=== PATIENT | male | born 1955 | race Caucasian/White ===

== ENCOUNTER 2021-05-08 12:30 | Inpatient (IN) | payer MEDICARE ==
[~2021-05-08] VITALS: Ht 182.9 cm; Wt 77.5 kg
--- NOTE | ~2021-05-08 | OP ---
[facility] [address] [place] [address] OPERATIVE REPORT Name: YESSY HENRIQUEZ Room: [address] IN M.R.#: [id number] Admission: 05/08/21 Attend Phys: Carmelina Flores Discharge: Date of : 53 Report #: [id number] THIS REPORT FOR: cc: Cristhian Tyson MD, Bruce D. MD Patterson, Jonathan D. MD ~ DATE OF SURGERY: 05/28/2021 PREOPERATIVE DIAGNOSIS: COVID respiratory failure with right pneumothorax. POSTOPERATIVE DIAGNOSIS: COVID respiratory failure with right pneumothorax. OPERATION: 1. Placement of right internal jugular vein central venous catheter. 2. Right tube thoracostomy placement with water seal. SURGEON: Harris Alvares MD ANESTHESIA: Local. ESTIMATED BLOOD LOSS: Minimal. SPECIMENS: None. DESCRIPTION OF PROCEDURE: After informed consent was obtained from the patient's family, the patient was placed supine on the ICU bed. The right neck and chest were prepped and draped in the usual sterile fashion. Right internal jugular vein was cannulated. Wire was placed. Dilator was placed. Catheter was placed to 16 cm. The right chest was then prepped and draped. The right fourth interspace was anesthetized with 1% lidocaine plain in the mid axillary line. A 2 cm incision was made. Dissection was carried down to the pleura. Pleura was incised. Vidal of air was noted. A 24-Peruvian chest tube was placed superiorly. It was secured to the skin with a 2-0 silk suture. It was connected to the Pleur-Evac. Sterile dressings were applied. COMPLICATIONS: None. DISPOSITION: The patient will stay in the ICU. By: 1047 1100Jojaquelin Alvares MD /nt
[2021-05-08 12:55] VITALS: BP 130/50
[2021-05-08] MEDS ORDERED: PRAVACHOL40 MG PO (12:58)
[2021-05-08] MEDS ORDERED: LEVO-T50 MCG PO (12:58)
[2021-05-08] MEDS ORDERED: RAMIPRIL5 MG PO (12:58)
[2021-05-08] MEDS ORDERED: VENTOLIN HFA 1818 GM INH (12:59)
[2021-05-08] MEDS ORDERED: BREO ELLIPTA 21 EACH INH (12:59)
[2021-05-08 15:19] LABS: HEMATOCRIT 42.8 % (42.0-52.0); MCH 31.3 pg (26.0-34.0); MCV 89.5 fL (80.0-100.0); MPV 7.4 fl. (7.2-11.1); NUCLEATED RBCS 0 /100WBC; PLATELET COUNT* 197 thou/uL (150-400); RBC 4.78 mil/uL (4.50-6.00); RDW-CV 13.6 % (10.5-14.5); WBC 7.6 thou/uL (4.0-11.0)
[2021-05-08 15:28] LABS: CALCIUM 8.2 mg/dL (8.5-10.1); CREATININE 1.4 mg/dL (0.6-1.3); POTASSIUM 3.2 mmol/L (3.5-5.1)
[2021-05-08 15:38] LABS: ALBUMIN 3.2 g/dL (3.4-5.0); MAGNESIUM 2.1 mg/dL (1.8-2.4); TOTAL BILIRUBIN 0.6 mg/dL (<0.1-1.0); TOTAL PROTEIN 7.3 g/dL (6.4-8.2)
--- NOTE | 2021-05-08 15:53 | EKG ---
[place] [address] ELECTROCARDIOGRAM REPORT Name: YESSY HENRIQUEZ Room: [place] [address] ADM IN M.R.#: [id number] Admission: 05/08/21 Attend Phys: Sulaiman Nelson Discharge: Date of : 53 Date of Service: 05/08/21 1309 Report #: [id number] THIS REPORT FOR: //name// [facility] ED Test Date: 2021-05-08 Test Time: 13:09:13 Pat Name: YESSY HENRIQUEZ Department: Room: [facility] Gender: M [employer] Enforcement Agent: LAURA : 1955 Requested By: Chaitanya Cardozo Order Number: [id number] MD: Sascha Brady Measurements Intervals [place] Rate: 113 P: 77 AK: 117 QRS: 81 QRSD: 97 T: -14 QT: 325 QTc: 446 Interpretive Statements Sinus tachycardia Borderline repolarization abnormality No previous ECG available for comparison Electronically Signed On 05-08-2021 15:53:02 [employer] by Sascha Brady [email or web address] <ELECTRONICALLY SIGNED> By: Sascha Brady MD, [facility] 05/08/21 1553 1309 1309 Sascha Brady MD, [facility] /EPI
[2021-05-08 16:15] LABS: ABSOLUTE LYMPHOCYTES 0.8 thou/uL (0.8-5.3); ABSOLUTE MONOCYTES 0.2 thou/uL (0.0-1.2); ABSOLUTE NEUTROPHILS 6.6 thou/uL (1.6-8.1)
[2021-05-08 16:16] LABS: PLATELET ESTIMATE ADEQUATE
[2021-05-08 19:00] VITALS: BP 128/69
[2021-05-08 23:00] VITALS: BP 149/104
--- NOTE | 2021-05-09 01:06 | NUR ---
PT REFUSING INPATIENT BED AT THIS TIME
[2021-05-09 02:48] VITALS: BP 174/104
[2021-05-09 06:02] VITALS: BP 157/83
[2021-05-09 09:39] LABS: CALCIUM 8.6 mg/dL (8.5-10.1); POTASSIUM 3.4 mmol/L (3.5-5.1)
[2021-05-09] MEDS ORDERED: PREDNISONE 20 M20 MG PO (09:48)
[2021-05-09] MEDS ORDERED: NICOTINE LOZENGE2 MG PO (09:49)
[2021-05-09 10:13] VITALS: BP 180/98
--- NOTE | 2021-05-09 10:19 | NUR ---
PT SINUSES RINSED WITH NORMAL SALINE BY DR. GUERRA AT BEDSIDE. PT'S O2 SATURATIONS DROPPED TO 80% WITHOUT OXYGEN. PT BLEW HIS NOSE AND REPORTED RELIEF OF DRYNESS WELL STATES HE FEELS BETTER. PT'S OXYGEN WAS REAPPLIED AND HIS CURRENT O2 SAT IS 91.
--- NOTE | 2021-05-09 10:25 | NUR ---
Pt is admitted on 05/08/21 with Covid. Called Maegan at: [phone] to complete assessment. Pt lives with in a house with 5 steps to enter and 5 steps in the home. Pt was previously independent in ADL's and Mobility. Pt has a walker from previous knee replacment sx but does not use this presently. He has a hx of home health but was unable to recall agency. Pt saw his PCP approximately 1 month ago. reports pt fills prescriptions at the [facility] on . Pt has no hx of SNF or ARU. reports they do not have DPOA paperwork. Discussed at length we could complete DPOA paperwork here and she is to think about it and discuss further with her spouse. CM to continue to follow for discharge planning.
[2021-05-09 14:38] VITALS: BP 171/98
[2021-05-09 20:19] VITALS: BP 153/81
[2021-05-09 20:35] VITALS: BP 164/94
[2021-05-10 00:09] VITALS: BP 183/88
[2021-05-10 04:04] VITALS: BP 139/76
--- NOTE | 2021-05-10 04:41 | NUR ---
PT ARRIVED TO THE UNIT AT 2029. A&O X 4. ON 8L-15 HFC. CHRONIC COUGH. NO C/O PAIN. USES URINAL TO VOID. SLEPT OFF AND ON. CALL LIGHT WITHIN REACH. WILL CONTINUE TO MONITOR.
[2021-05-10 08:00] VITALS: BP 155/92
--- NOTE | 2021-05-10 14:02 | NUR ---
CM FOLLOWUP PT NOT MED CLEAR AND ON 15L O2. CM TO FOLLOW FOR FUTURE DC NEEDS. CURRENT DC PLAN TO DC HOME WITH SPOUSE.
[2021-05-10 16:00] VITALS: BP 168/95
[2021-05-10 20:00] VITALS: BP 161/81
[2021-05-11 00:02] VITALS: BP 144/94
[2021-05-11 04:00] VITALS: BP 127/91
--- NOTE | 2021-05-11 04:18 | NUR ---
ASSUMED CARE OF PT AFTER REPORT AT 1930. PT A&OX4. VSS. PHYSICAL ASSESSMENT COMPLETED AND CHARTED. PT ON HFNC 15L. PT TRACING SR/SB ON TELE. PT DENIES ANY PAIN. PT ABLE TO SLEEP WELL ON BED. CALL LIGHT WITHIN REACH.
[2021-05-11 08:00] VITALS: BP 165/88
[2021-05-11 12:03] VITALS: BP 134/91
[2021-05-11 16:17] VITALS: BP 149/95
[2021-05-11 17:20] LABS: ABSOLUTE LYMPHOCYTES 0.5 thou/uL (0.8-5.3); ABSOLUTE MONOCYTES 1.5 thou/uL (0.0-1.2); ABSOLUTE NEUTROPHILS 14.9 thou/uL (1.6-8.1); BASOPHILS 0.1 %; EOSINOPHILS 0.1 %; HEMATOCRIT 44.8 % (42.0-52.0); HEMOGLOBIN 15.2 gm/dL (14.0-18.0); LYMPHOCYTES 3.1 %; MCH 30.4 pg (26.0-34.0); MCHC 33.9 g/dL (28.0-37.0); MCV 89.7 fL (80.0-100.0); MONOCYTES 8.8 %; MPV 7.7 fl. (7.2-11.1); NUCLEATED RBCS 0 /100WBC; PLATELET COUNT* 285 thou/uL (150-400); POLYS 87.9 %; RBC 4.99 mil/uL (4.50-6.00); RDW-CV 13.6 % (10.5-14.5)
[2021-05-11 17:30] LABS: APTT 24.1 Seconds (25.0-31.3); PROTIME 10.5 Seconds (9.20-11.50)
[2021-05-11 17:32] LABS: CALCIUM 8.7 mg/dL (8.5-10.1); CREATININE 0.9 mg/dL (0.6-1.3); TOTAL BILIRUBIN 0.5 mg/dL (<0.1-1.0); TOTAL PROTEIN 7.1 g/dL (6.4-8.2)
[2021-05-11 20:20] VITALS: BP 148/78
[2021-05-12 08:00] VITALS: BP 143/83
[2021-05-12 11:49] LABS: HEMOGLOBIN 14.8 gm/dL (14.0-18.0); MCH 31.2 pg (26.0-34.0); MCHC 34.4 g/dL (28.0-37.0); MCV 90.8 fL (80.0-100.0); MPV 7.6 fl. (7.2-11.1); RBC 4.74 mil/uL (4.50-6.00); RDW-CV 13.7 % (10.5-14.5)
[2021-05-12 12:30] LABS: CALCIUM 8.3 mg/dL (8.5-10.1); CREATININE 0.7 mg/dL (0.6-1.3); POTASSIUM 3.9 mmol/L (3.5-5.1)
[2021-05-12 14:30] VITALS: BP 148/85
[2021-05-12 17:33] VITALS: BP 157/88
[2021-05-12 20:00] VITALS: BP 140/89
[2021-05-13] VITALS: BP 164/80
[2021-05-13 04:00] VITALS: BP 131/72; BP 142/81
[2021-05-13 08:00] VITALS: BP 141/87
[2021-05-13 11:15] LABS: HEMOGLOBIN 14.9 gm/dL (14.0-18.0); MCH 30.3 pg (26.0-34.0); MCHC 33.2 g/dL (28.0-37.0); MCV 91.4 fL (80.0-100.0); MPV 7.7 fl. (7.2-11.1); NUCLEATED RBCS 0 /100WBC; PLATELET COUNT* 292 thou/uL (150-400); RBC 4.92 mil/uL (4.50-6.00); RDW-CV 14.1 % (10.5-14.5); WBC 12.3 thou/uL (4.0-11.0)
[2021-05-13 11:42] LABS: ALBUMIN 2.7 g/dL (3.4-5.0); CALCIUM 8.5 mg/dL (8.5-10.1); CREATININE 0.7 mg/dL (0.6-1.3); MAGNESIUM 2.5 mg/dL (1.8-2.4); POTASSIUM 3.9 mmol/L (3.5-5.1); TOTAL BILIRUBIN 0.6 mg/dL (<0.1-1.0); TOTAL PROTEIN 6.4 g/dL (6.4-8.2)
[2021-05-13 13:20] LABS: ABSOLUTE LYMPHOCYTES 0.6 thou/uL (0.8-5.3); ABSOLUTE MONOCYTES 0.4 thou/uL (0.0-1.2); ABSOLUTE NEUTROPHILS 11.3 thou/uL (1.6-8.1); PLATELET ESTIMATE ADEQUATE
[2021-05-13 13:24] VITALS: BP 116/73
--- NOTE | 2021-05-13 14:57 | NUR ---
THE PATIENT IS ALERT. SR/ST ON THE MONITOR. CALL LIGHT WITHIN REACH. VOIDS IN THE URINAL. THE PATIENY OFTEN TAKES HIS OXYGEN OFF TO BLOW HIS NOSE THE PATIENT WAS EDUCATED YET HE COMES TO REMOVE HIS OXYGEN.
[2021-05-13 16:32] VITALS: BP 121/80
[2021-05-13 22:40] VITALS: BP 154/87
[2021-05-14] VITALS: BP 135/74
[2021-05-14 04:00] VITALS: BP 137/75
[2021-05-14 04:28] LABS: ABSOLUTE LYMPHOCYTES 0.3 thou/uL (0.8-5.3); ABSOLUTE MONOCYTES 0.7 thou/uL (0.0-1.2); ABSOLUTE NEUTROPHILS 15.1 thou/uL (1.6-8.1); BASOPHILS 0.1 %; HEMATOCRIT 46.3 % (42.0-52.0); HEMOGLOBIN 15.1 gm/dL (14.0-18.0); LYMPHOCYTES 1.9 %; MCH 30.1 pg (26.0-34.0); MCHC 32.6 g/dL (28.0-37.0); MCV 92.3 fL (80.0-100.0); MONOCYTES 4.5 %; MPV 7.7 fl. (7.2-11.1); NUCLEATED RBCS 0 /100WBC; PLATELET COUNT* 324 thou/uL (150-400); POLYS 93.5 %; RBC 5.01 mil/uL (4.50-6.00); RDW-CV 14.1 % (10.5-14.5); WBC 16.2 thou/uL (4.0-11.0)
[2021-05-14 04:52] LABS: ALBUMIN 2.8 g/dL (3.4-5.0); CALCIUM 8.9 mg/dL (8.5-10.1); CREATININE 0.9 mg/dL (0.6-1.3); PHOSPHORUS* 4.1 mg/dL (2.5-4.9); POTASSIUM 3.8 mmol/L (3.5-5.1); TOTAL BILIRUBIN 0.6 mg/dL (<0.1-1.0); TOTAL PROTEIN 6.5 g/dL (6.4-8.2)
--- NOTE | 2021-05-14 07:56 | NUR ---
PATIENT HAS SLEPT OFF AND ON DURING THE NIGHT. VSS ON HEATED HIGH FLOW AT 40L WITH 100% FIO2 AND NON REBREATHER AT 15L. PATIENTS OXYGENATION SATURATION DROPS IN THE 80'S UPON EXERTION. MEDICATIONS GIVEN ORDERED AND CHARTED. 24HR URINE STARTED AND DAY NURSE INFORMED OF THIS DURING REPORT THIS AM. IV IN RIGHT AC-SL. IV IN RIGHT FOREARM-SL. REMDESIVIR ORDERED BY AND [facility] NOTIFIED THAT WE NEEDING MEDICATION FOR PATIENT. IT WAS GIVEN ONCE IT WAS BROUGHT UP FROM [facility] D/T IT NOT BEING AVAILABLE AT THE TIME IT WAS ORDERED. PATIENT INSTRUCTED TO USE CALL LIGHT WHEN NEEDING ASSISTANCE. HOURLY ROUNDS MADE. WILL CONTINUE WITH PLAN OF CARE AND NURSING TO MONITOR.
[2021-05-14 13:37] VITALS: BP 166/97
--- NOTE | 2021-05-14 15:08 | CON ---
[address] [address] CONSULTATION Name: YESSY HENRIQUEZ Carmelina Room: [address] IN M.R.#: [id number] Admission: 05/08/21 Attend Phys: Carmelina Flores Discharge: Date of : 53 Report #: [id number] THIS REPORT FOR: cc: Cristhian Tyson MD, Bruce D. MD Pervez, Adeel MD ~ DATE OF CONSULTATION: 05/12/2021 REQUESTING PHYSICIAN: Dr. Cartagena. INDICATION FOR CONSULTATION: Acute hypoxemic respiratory failure secondary to COVID-19. HISTORY OF PRESENT ILLNESS: This is a 65-year-old gentleman, past medical history includes a history of COPD. He has smoked in the past. He is not on supplemental oxygen at home. He is not vaccinated for COVID-19. The patient is now admitted on 05/08. He has been requiring supplemental oxygen. However, initially he was requiring only 4 liters of oxygen to maintain O2 saturation in the low 90s. There is a progressive increase in oxygen needs. Yesterday, he was maintaining O2 saturation at 4:00 a.m. with 15 liters of oxygen in place, oxygen needs then increased further and he to be placed on a heated high-flow nasal cannula. Currently he is requiring 100% FiO2 with 40 liters flow to maintain O2 saturation in the low 90s. He still appears to be only mildly short of breath at rest. He does have significant swelling of lower extremities. Interestingly, there was a chest x-ray, which was performed yesterday evening, which in fact shows only small infiltrates and mild increase in pulmonary vascular congestion. Hypoxemia appears to be out of proportion. Venous Dopplers are negative. His D-dimer is mildly elevated at 1.74. He does not have much of sputum production. He has a significant blocked nose. REVIEW OF SYSTEMS: For 12 points is negative except as mentioned above. PAST MEDICAL HISTORY: COPD, not on oxygen at home, although not documented on the records. His past medical history is consistent with history of hypertension as well as hypothyroidism, hyperlipidemia, left knee surgery. SOCIAL HISTORY: Previous history of smoking, extensive and now discontinued. VACCINATION HISTORY: Not vaccinated for COVID-19. CURRENT MEDICATIONS: List in [employer] reviewed. HOME MEDICATIONS: List in [employer] reviewed. ALLERGIES: [place] [address] CONSULTATION Name: YESSY HENRIQUEZ Room: [address]#: [id number] Admission: 05/08/21 Attend Phys: Carmelina Flores Discharge: Date of : 53 Report #: [id number] FAMILY HISTORY: No pertinent family history. PHYSICAL EXAMINATION: GENERAL: Alert, awake and oriented. VITAL SIGNS: In the records reviewed. NECK: Does not show raised JVP. CHEST: Breath sounds are bilaterally equal, decreased expirations prolonged. No wheezes heard though. HEART: Regular. No murmur. ABDOMEN: Soft and nontender. EXTREMITIES: Lower extremities, 2+ edema. No calf tenderness. LABORATORY DATA: Chest x-rays are as discussed above. Venous Dopplers also as discussed above. X-ray films as well as report reviewed. Lab work in [facility] reviewed. ASSESSMENT/PLAN: 1. Acute hypoxemic respiratory failure secondary to COVID-19. He is significantly more hypoxemic compared with his x-ray findings from yesterday; therefore, I recommend that we go ahead and proceed with a CTA chest to assess further. I recommend that we also do an echocardiogram. The patient does appear to be significantly fluid overloaded on my exam and I do intend to diurese him. However, since he will be receiving IV dye soon, I did not order diuresis now. We will plan to order later. 2. COVID-19. He is significantly hypoxemic. Also, has a history of chronic obstructive pulmonary disease. Therefore, I decided to increase his dexamethasone dose to 10 b.i.d. He received his fifth dose of remdesivir today. I will assess tomorrow and then consider a longer course of remdesivir. Actemra is in short supply. Based on the availability, it would be reasonable to administer if available. 3. Pulmonary infiltrates. Only small pulmonary infiltrates on chest x-ray. He is on doxycycline. I did not broaden antibiotic coverage for now, but we will reassess after CT is performed. Sputum culture and nasal swab for MRSA are ordered. 4. Chronic obstructive pulmonary disease exacerbation. He is on budesonide nebs. Also, I increased dexamethasone as above. We will start nebulized bronchodilators. 5. Fluid overload. See discussion above. 6. Clostridium difficile prophylaxis, Lactinex. 7. Deep venous thrombosis prophylaxis. Currently on Lovenox 60 daily. We will reassess his CT chest tomorrow. 8. Rhinitis. I changed his Afrin to schedule. 9. Clostridium difficile prophylaxis, Lactinex. [address] [address] CONSULTATION Name: YESSY HENRIQUEZ Room: [address] IN [facility].#: [id number] Admission: 05/08/21 Attend Phys: Carmelina Flores Discharge: Date of : 53 Report #: [id number] 10. Gastrointestinal prophylaxis. We will order Pepcid. Thanks for this consultation. <ELECTRONICALLY SIGNED> By: Volodymyr Barillas MD 05/14/21 1508 1813 2050Volodymyr Barillas MD /nt
[2021-05-14 16:16] VITALS: BP 133/88
--- NOTE | 2021-05-14 18:22 | NUR ---
CM FOLLOWUP PT NOT MED CLEAR AND ON 40L O2. CM TO FOLLOW FOR DC PLANNING.
[2021-05-14 22:30] VITALS: BP 119/75
[2021-05-15 00:20] VITALS: BP 132/47
[2021-05-15 03:52] LABS: BE 1.7 mmol/L (-2 to +3); PCO2 35.2 mmHg (35.0-45.0); pH 7.468 (7.340-7.450)
[2021-05-15 04:00] VITALS: BP 128/66
[2021-05-15 04:29] LABS: ABSOLUTE LYMPHOCYTES 0.3 thou/uL (0.8-5.3); ABSOLUTE MONOCYTES 0.7 thou/uL (0.0-1.2); ABSOLUTE NEUTROPHILS 15.5 thou/uL (1.6-8.1); HEMOGLOBIN 14.5 gm/dL (14.0-18.0); LYMPHOCYTES 1.8 %; MCHC 32.8 g/dL (28.0-37.0); MCV 91.2 fL (80.0-100.0); MONOCYTES 4.1 %; MPV 7.7 fl. (7.2-11.1); NUCLEATED RBCS 0 /100WBC; PLATELET COUNT* 355 thou/uL (150-400); POLYS 94.1 %; RBC 4.83 mil/uL (4.50-6.00); RDW-CV 13.9 % (10.5-14.5); WBC 16.5 thou/uL (4.0-11.0)
[2021-05-15 04:56] LABS: ALBUMIN 2.6 g/dL (3.4-5.0); CALCIUM 8.5 mg/dL (8.5-10.1); CREATININE 0.9 mg/dL (0.6-1.3); MAGNESIUM 2.5 mg/dL (1.8-2.4); POTASSIUM 4.5 mmol/L (3.5-5.1); TOTAL BILIRUBIN 0.6 mg/dL (<0.1-1.0); TOTAL PROTEIN 6.3 g/dL (6.4-8.2)
[2021-05-15 05:06] LABS: PO2 59.1 mmHg (75.0-100.0)
[2021-05-15 08:00] VITALS: BP 130/80
--- NOTE | 2021-05-15 08:39 | NUR ---
PATIENT HAS SLEPT OFF AND ON DURING THE NIGHT. VSS ON HEATED HIGH FLOW @ 40L WITH FIO2 100% AND NON-REBREATHER @ 15L. PATIENTS OXYGEN SATURATION DECREASES ON EXERTION. NOTIFIED OF CRITICAL PO2 THIS AM. NEW ORDER TO START BIPAP. PAIENT EDUCATED ON BIPAP BY NURSE AND RESPIRATORY THERAPIST. PATIENT AGREES TO USE BIPAP. NEW ORDER ALSO GIVEN FOR IV ANXIETY MEDICATION TO HELP WITH TOLERATING BIPAP USE. IV IN RIGHT WRIST-SL. MEDICATIONS GIVEN ORDERED AND CHARTED. PATIENT INSTRUCTED TO USE CALL LIGHT WHEN NEEDING ASSISTANCE. HOURLY ROUNDS MADE. WILL CONTINUE WITH PLAN OF CARE AND NURSING TO MONITOR.
[2021-05-15 12:00] VITALS: BP 131/74
--- NOTE | 2021-05-15 15:23 | NUR ---
The patient is alert. SR/ST on the monitor. Call light within reach. The patient was placed on the BIPAP. Voids via urinal. Oxygen stat drops some with activity.
[2021-05-15 16:00] VITALS: BP 128/77
--- NOTE | 2021-05-15 16:03 | NUR ---
CM FOLLOWUP PT NOT MED CLEAR AND ON 40L O2. PT INDICATED THAT HE WOULD LIKE AND SPOUSE LISTED DPOA. DPOA FORM COMPLETED AND PROVIDED TO RN TO HAVE PT SIGN. CM TO FOLLOW FOR FUTURE DC PLANNING.
--- NOTE | 2021-05-15 18:38 | NUR ---
The patient was offfered a cather and declined at this time.
[2021-05-15 21:50] VITALS: BP 106/68
[2021-05-16 04:43] LABS: HEMATOCRIT 45.6 % (42.0-52.0); HEMOGLOBIN 15.3 gm/dL (14.0-18.0); MCH 30.6 pg (26.0-34.0); MCHC 33.5 g/dL (28.0-37.0); MCV 91.4 fL (80.0-100.0); MPV 7.8 fl. (7.2-11.1); NUCLEATED RBCS 0 /100WBC; PLATELET COUNT* 355 thou/uL (150-400); RBC 4.99 mil/uL (4.50-6.00); RDW-CV 13.9 % (10.5-14.5); WBC 18.6 thou/uL (4.0-11.0)
[2021-05-16 04:59] LABS: BE 1.9 mmol/L (-2 to +3); PCO2 39.5 mmHg (35.0-45.0); PO2 71.6 mmHg (75.0-100.0); pH 7.438 (7.340-7.450)
[2021-05-16 05:11] VITALS: BP 112/60
[2021-05-16 05:21] LABS: ALBUMIN 2.8 g/dL (3.4-5.0); CALCIUM 8.7 mg/dL (8.5-10.1); CREATININE 1.1 mg/dL (0.6-1.3); PHOSPHORUS* 4.6 mg/dL (2.5-4.9); POTASSIUM 4.7 mmol/L (3.5-5.1); TOTAL BILIRUBIN 0.6 mg/dL (<0.1-1.0); TOTAL PROTEIN 6.7 g/dL (6.4-8.2)
[2021-05-16 07:07] LABS: ABSOLUTE LYMPHOCYTES 0.4 thou/uL (0.8-5.3); ABSOLUTE MONOCYTES 1.3 thou/uL (0.0-1.2); ABSOLUTE NEUTROPHILS 16.9 thou/uL (1.6-8.1)
[2021-05-16 07:08] LABS: PLATELET ESTIMATE ADEQUATE
[2021-05-16 08:00] VITALS: BP 102/54
--- NOTE | 2021-05-16 08:14 | NUR ---
PATIENT HAS SLEPT OFF AND ON DURING THE NIGHT. VSS ON BIPAP @ 100% FIO2. PATIENT RESTLESS AT TIMES. MEDICATIONS GIVEN ORDERED AND CHARTED. NEW IV INSERTED IN RIGHT HAND-SL. PATIENT INSTRUCTED TO USE CALL LIGHT WHEN NEEDING ASSISTANCE. HOURLY ROUNDS MADE. WILL CONTINUE WITH PLAN OF CARE AND NURSING TO MONITOR.
[2021-05-16 12:00] VITALS: BP 117/66
--- NOTE | 2021-05-16 13:28 | NUR ---
CM FOLLOWUP PT NOT MED CLEAR AND ON BIPAP. CM TO FOLLOW FOR FUTURE DC PLANNING.
--- NOTE | 2021-05-16 13:59 | NUR ---
the patient is alert. denies cp or sob. call light within reach. call light withiin reach. the patient remians on the bipap unless heated hi flow with meals. voids via urinal.
--- NOTE | 2021-05-16 14:08 | NUR ---
Nutrition: Pt admitted with COVID. On bipap, but on hi-lynsey with meals. Assessed for LOS. Labs: BG 144, alb 2.8, prealb 21.4. Wt: 169#. 2gm Na diet. Vitmains C, D, B1. Appears at low nutrition risk.
[2021-05-16 16:00] VITALS: BP 133/103
[2021-05-16 19:45] VITALS: BP 150/88
[2021-05-16 20:49] LABS: CREATININE 1.1 mg/dL (0.6-1.3); MAGNESIUM 3.1 mg/dL (1.8-2.4); POTASSIUM 4.5 mmol/L (3.5-5.1)
[2021-05-17 00:50] VITALS: BP 117/61
[2021-05-17 04:28] VITALS: BP 136/66
--- NOTE | 2021-05-17 04:37 | NUR ---
PT A&O X 4. O2 SAT 95-99% ON BIPAP. MEDS GIVEN ORDERED. NO C/O PAIN. USES URINAL TO VOID. CALL LIGHT WITHIN REACH. WILL CONTINUE TO MONITOR.
[2021-05-17 05:21] LABS: ABSOLUTE LYMPHOCYTES 0.3 thou/uL (0.8-5.3); ABSOLUTE MONOCYTES 0.7 thou/uL (0.0-1.2); ABSOLUTE NEUTROPHILS 13.8 thou/uL (1.6-8.1); BASOPHILS 0.2 %; HEMOGLOBIN 14.8 gm/dL (14.0-18.0); LYMPHOCYTES 2.2 %; MCHC 32.8 g/dL (28.0-37.0); MCV 91.7 fL (80.0-100.0); MONOCYTES 4.5 %; MPV 7.8 fl. (7.2-11.1); NUCLEATED RBCS 0 /100WBC; PLATELET COUNT* 386 thou/uL (150-400); POLYS 93.1 %; RBC 4.91 mil/uL (4.50-6.00); WBC 14.8 thou/uL (4.0-11.0)
[2021-05-17 05:47] LABS: ALBUMIN 3.4 g/dL (3.4-5.0); CALCIUM 8.9 mg/dL (8.5-10.1); CREATININE 1.1 mg/dL (0.6-1.3); MAGNESIUM 3.2 mg/dL (1.8-2.4); PHOSPHORUS* 4.1 mg/dL (2.5-4.9); POTASSIUM 4.6 mmol/L (3.5-5.1); TOTAL BILIRUBIN 0.7 mg/dL (<0.1-1.0); TOTAL PROTEIN 7.1 g/dL (6.4-8.2)
[2021-05-17 08:00] VITALS: BP 114/77
--- NOTE | 2021-05-17 09:04 | 2DMMODE ---
[place] [address] 2 D/M-MODE ECHOCARDIOGRAM Name: YESSY HENRIQUEZ Room: [address] IN M.R.#: [id number] Admission: 05/08/21 Attend Phys: Sulaiman Nelson Discharge: Date of : 53 Date of Service: 05/15/21 1342 Report #: [id number] THIS REPORT FOR: cc: Cristhian Tyson MD, Bruce D. MD Liston, Michael J. MD [facility] ~ APPROVED REPORT Study performed: 05/15/2021 12:27:36 EXAM: Limited 2D, Doppler, and color-flow Echocardiogram Patient Location: Bedside BSA: 1.98 HR: 98 bpm BP: 137/75 mmHg Other Information Study Quality: Technically Limited Technically limited study due to Covid. Indications Dyspnea Covid 2D Dimensions IVSd: 11.19 (7-11mm) LVDd: 44.05 mm PWd: 11.48 (7-11mm) LVDs: 28.75 (25-40mm) Aortic Root: 25.35 mm Aortic Valve AoV Peak Jose Daniel.: 1.54 m/s AO Peak Gr.: 9.49 mmHg LVOT Max P.82 mmHg AO Mean Gr.: 4.74 mmHg LVOT Mean P.97 mmHg LVOT Max V: 0.98 m/s AO V2 VTI: 24.47 cm LVOT Mean V: 0.64 m/s LVOT V1 VTI: 18.16 cm Pulmonary Valve PV Peak Jose Daniel.: 1.43 m/s PV Peak Gr.: 8.18 mmHg Left Ventricle The left ventricle is grossly normal in size. [place] [address] 2 D/M-MODE ECHOCARDIOGRAM Name: YESSY HENRIQUEZ Room: [address] IN ..#: [id number] Admission: 05/08/21 Attend Phys: Sulaiman Nelson Discharge: Date of : 53 Date of Service: 05/15/21 1342 Report #: [id number] wall motion abnormalities. There is normal left ventricular wall thickness. Left ventricular systolic function is grossly normal. LVEF is 60-65%. Atria Interatrial septum not well visualized. Aortic Valve The aortic valve is normal in structure. No aortic regurgitation is present. There is no aortic valvular stenosis. Mitral Valve The mitral valve is normal in structure. Trace mitral regurgitation. No evidence of mitral valve stenosis. Tricuspid Valve The tricuspid valve is normal in structure. Trace tricuspid regurgitation. Pulmonic Valve Pulmonic valve is not well visualized. There is no pulmonic valvular regurgitation. Great Vessels The aortic root is normal in size. Aortic arch is not visualized. IVC is normal in size and collapses >50% with inspiration. Pericardium There is no pericardial effusion. <Conclusion> Limited echocardiogram. The left ventricle is grossly normal in size. There is normal left ventricular wall thickness. Left ventricular systolic function is grossly normal. LVEF is 60-65%. There are no obvious wall motion abnormalities. Trace tricuspid regurgitation. IVC is normal in size and collapses >50% with inspiration. <ELECTRONICALLY SIGNED> By: Tha White MD, FACC 05/15/21 134 134 41 Tha White MD, FACC /INF
[2021-05-17 12:00] VITALS: BP 108/81
[2021-05-17 16:00] VITALS: BP 136/80
--- NOTE | 2021-05-17 16:38 | NUR ---
CM FOLLOWUP PT NOT MED CLEAR AND ON BIPAP 100%. CM TO FOLLOW FOR FUTURE DC PLANNING.
[2021-05-17 20:00] VITALS: BP 147/84
--- NOTE | 2021-05-17 21:29 | NUR ---
We need to add the patient's daughters to his authorized contact list. His is very confused after updates and he has requested that we also reach out to the girls. I can't add them to the list since it is 'too old.' Ashley Alfaro [phone] Lorin Benjamin [phone]
[2021-05-18 01:24] VITALS: BP 116/65
[2021-05-18 04:29] VITALS: BP 142/61
--- NOTE | 2021-05-18 06:30 | NUR ---
ASSUMED CARE OF PT AFTER REPORT AT 1930. PT A&OX4. VSS. PHYSICAL ASSESSMENT COMPLETED AND CHARTED. PT ON HHFNC 60L/100%/BIPAP 100%. PT TRACING SR/ST ON TELE. PT DENIES ANY PAIN. PT ABLE TO SLEEP WELL ON BED. CALL LIGHT WITHIN REACH.
[2021-05-18 08:20] VITALS: BP 137/69
[2021-05-18 11:59] VITALS: BP 121/79
--- NOTE | 2021-05-18 16:21 | NUR ---
CM FOLLOWUP PT NOT MED CLEAR AND ON HIFLOW 02. WHEN MED CLEAR, PT SEEKING TO DC HOME WITH SPOUSE. CM TO FOLLOW FOR FUTURE DC NEEDS.
[2021-05-18 18:07] VITALS: BP 135/85
[2021-05-18 20:00] VITALS: BP 134/78
[2021-05-19] VITALS: BP 144/86
[2021-05-19 04:00] VITALS: BP 137/85
[2021-05-19 05:41] LABS: ABSOLUTE BASOPHILS 0.1 thou/uL (0.0-0.2); ABSOLUTE LYMPHOCYTES 0.3 thou/uL (0.8-5.3); ABSOLUTE MONOCYTES 0.6 thou/uL (0.0-1.2); ABSOLUTE NEUTROPHILS 16.5 thou/uL (1.6-8.1); BASOPHILS 0.3 %; HEMATOCRIT 43.7 % (42.0-52.0); HEMOGLOBIN 14.6 gm/dL (14.0-18.0); LYMPHOCYTES 1.8 %; MCH 30.6 pg (26.0-34.0); MCHC 33.5 g/dL (28.0-37.0); MCV 91.5 fL (80.0-100.0); MONOCYTES 3.3 %; MPV 8.7 fl. (7.2-11.1); NUCLEATED RBCS 0 /100WBC; POLYS 94.6 %; RBC 4.78 mil/uL (4.50-6.00); RDW-CV 14.2 % (10.5-14.5); WBC 17.4 thou/uL (4.0-11.0)
[2021-05-19 06:00] LABS: PLATELET COUNT* 308 thou/uL (150-400)
[2021-05-19 06:11] LABS: ALBUMIN 2.9 g/dL (3.4-5.0); CALCIUM 8.9 mg/dL (8.5-10.1); CREATININE 0.9 mg/dL (0.6-1.3); MAGNESIUM 2.6 mg/dL (1.8-2.4); POTASSIUM 5.9 mmol/L (3.5-5.1); TOTAL PROTEIN 6.7 g/dL (6.4-8.2)
[2021-05-19 08:00] VITALS: BP 129/87
[2021-05-19 12:00] VITALS: BP 123/70
[2021-05-19 16:00] VITALS: BP 123/85
[2021-05-19 20:00] VITALS: BP 169/82
[2021-05-20] VITALS: BP 130/75
--- NOTE | 2021-05-20 03:33 | NUR ---
ASSUMED CARE OF PT AFTER REPORT AT 1930. PT A&OX4. VSS. PHYSICAL ASSESSMENT COMPLETED AND CHARTED. PT ON HHFNC/NRB/BIPAP AT HS. PT TRACING SR/ST ON TELE. PT UPSTANDBY TO BSC. PT DENIES PAIN. PT ABLE TO SLEEP WELL ON BED. CALL LIGHT WITHIN REACH.
[2021-05-20 04:00] VITALS: BP 100/80
[2021-05-20 06:16] LABS: HEMATOCRIT 45.3 % (42.0-52.0); HEMOGLOBIN 15.1 gm/dL (14.0-18.0); MCH 30.4 pg (26.0-34.0); MCHC 33.3 g/dL (28.0-37.0); MCV 91.5 fL (80.0-100.0); MPV 8.4 fl. (7.2-11.1); RBC 4.95 mil/uL (4.50-6.00); RDW-CV 13.9 % (10.5-14.5); WBC 21.7 thou/uL (4.0-11.0)
[2021-05-20 06:43] LABS: ALBUMIN 2.9 g/dL (3.4-5.0); CALCIUM 9.1 mg/dL (8.5-10.1); MAGNESIUM 2.5 mg/dL (1.8-2.4); POTASSIUM 5.4 mmol/L (3.5-5.1); TOTAL BILIRUBIN 0.8 mg/dL (<0.1-1.0); TOTAL PROTEIN 6.5 g/dL (6.4-8.2)
[2021-05-20 08:00] VITALS: BP 113/83
[2021-05-20 12:00] VITALS: BP 124/83
[2021-05-20 15:43] VITALS: BP 115/64
[2021-05-20 20:00] VITALS: BP 140/97
[2021-05-21] VITALS: BP 112/65
[2021-05-21 04:00] VITALS: BP 116/68
--- NOTE | 2021-05-21 04:07 | NUR ---
ASSUMED CARE OF PT AFTER REPORT AT 1930. PT A&OX4. ANXIOUS AT FIRST PART OF THE SHIFT. VSS. PHYSICAL ASSESSMENT COMPLETED AND CHARTED. PT ON HHFNC/NRB/BIPAP ON TELE. PT UPSTANDBY TO RESTROOM. PT DENIES PAIN. FALL PRECAUTIONS IN PLACE. CALL LIGHT WITHIN REACH.
[2021-05-21 08:00] VITALS: BP 130/74
[2021-05-21 13:07] VITALS: BP 129/88
[2021-05-21 14:42] LABS: HEMATOCRIT 43.4 % (42.0-52.0); HEMOGLOBIN 14.6 gm/dL (14.0-18.0); MCH 29.9 pg (26.0-34.0); MCHC 33.5 g/dL (28.0-37.0); MCV 89.2 fL (80.0-100.0); MPV 8.5 fl. (7.2-11.1); NUCLEATED RBCS 0 /100WBC; PLATELET COUNT* 224 thou/uL (150-400); RBC 4.87 mil/uL (4.50-6.00); RDW-CV 13.6 % (10.5-14.5); WBC 23.1 thou/uL (4.0-11.0)
[2021-05-21 15:04] LABS: ABSOLUTE LYMPHOCYTES 0.5 thou/uL (0.8-5.3); ABSOLUTE MONOCYTES 0.2 thou/uL (0.0-1.2); ABSOLUTE NEUTROPHILS 22.4 thou/uL (1.6-8.1); PLATELET ESTIMATE ADEQUATE
[2021-05-21 16:38] VITALS: BP 133/88
--- NOTE | 2021-05-21 17:13 | NUR ---
CM FOLLOWUP PT NOT MED CLEAR AND ON BIPAP. CM TO FOLLOW FOR FUTURE DC NEEDS.
[2021-05-21 20:00] VITALS: BP 135/86
[2021-05-21 21:41] LABS: ALBUMIN 2.7 g/dL (3.4-5.0); CALCIUM 8.5 mg/dL (8.5-10.1); MAGNESIUM 2.7 mg/dL (1.8-2.4); POTASSIUM 4.8 mmol/L (3.5-5.1); TOTAL BILIRUBIN 0.8 mg/dL (<0.1-1.0); TOTAL PROTEIN 6.3 g/dL (6.4-8.2)
[2021-05-22 00:06] VITALS: BP 141/66
[2021-05-22 04:35] VITALS: BP 125/59
[2021-05-22 08:00] VITALS: BP 130/74
[2021-05-22 12:00] VITALS: BP 118/72
[2021-05-22 16:00] VITALS: BP 138/78
[2021-05-22 16:14] LABS: ABSOLUTE LYMPHOCYTES 0.4 thou/uL (0.8-5.3); ABSOLUTE MONOCYTES 0.9 thou/uL (0.0-1.2); ABSOLUTE NEUTROPHILS 19.4 thou/uL (1.6-8.1); BASOPHILS 0.1 %; EOSINOPHILS 0.1 %; HEMATOCRIT 41.3 % (42.0-52.0); HEMOGLOBIN 13.5 gm/dL (14.0-18.0); LYMPHOCYTES 2.1 %; MCHC 32.8 g/dL (28.0-37.0); MCV 91.6 fL (80.0-100.0); MONOCYTES 4.1 %; MPV 8.5 fl. (7.2-11.1); NUCLEATED RBCS 0 /100WBC; PLATELET COUNT* 217 thou/uL (150-400); POLYS 93.6 %; RBC 4.51 mil/uL (4.50-6.00); RDW-CV 13.3 % (10.5-14.5); WBC 20.7 thou/uL (4.0-11.0)
[2021-05-22 16:54] LABS: ALBUMIN 2.6 g/dL (3.4-5.0); CALCIUM 8.5 mg/dL (8.5-10.1); POTASSIUM 4.6 mmol/L (3.5-5.1); TOTAL BILIRUBIN 0.9 mg/dL (<0.1-1.0); TOTAL PROTEIN 5.6 g/dL (6.4-8.2)
--- NOTE | 2021-05-22 17:13 | NUR ---
CM FOLLOWUP PT NOT MED CLEAR. PT OFF ISOLATION AND MAY BEGIN HAVING VISITORS. CM TO FOLLOW FOR DC PLANNING NEEDS.
[2021-05-22 20:00] VITALS: BP 128/80
--- NOTE | 2021-05-23 00:32 | NUR ---
The patient is alert. able to make needs known. Call light withn reach. sr/st on the monitor. the patient tolerated being off the bipap to take medication.
[2021-05-23 00:34] VITALS: BP 170/97
[2021-05-23 02:12] LABS: ABSOLUTE LYMPHOCYTES 0.4 thou/uL (0.8-5.3); ABSOLUTE MONOCYTES 0.9 thou/uL (0.0-1.2); ABSOLUTE NEUTROPHILS 22.1 thou/uL (1.6-8.1); BASOPHILS 0.2 %; HEMATOCRIT 40.7 % (42.0-52.0); HEMOGLOBIN 13.4 gm/dL (14.0-18.0); LYMPHOCYTES 1.9 %; MCHC 32.9 g/dL (28.0-37.0); MCV 91.2 fL (80.0-100.0); MPV 8.9 fl. (7.2-11.1); NUCLEATED RBCS 0 /100WBC; PLATELET COUNT* 241 thou/uL (150-400); POLYS 93.9 %; RBC 4.46 mil/uL (4.50-6.00); RDW-CV 13.7 % (10.5-14.5); WBC 23.6 thou/uL (4.0-11.0)
[2021-05-23 02:32] LABS: CALCIUM 8.6 mg/dL (8.5-10.1); CREATININE 0.9 mg/dL (0.6-1.3); MAGNESIUM 2.5 mg/dL (1.8-2.4); POTASSIUM 4.7 mmol/L (3.5-5.1)
[2021-05-23 04:10] VITALS: BP 135/79
[2021-05-23 09:15] VITALS: BP 106/74
[2021-05-23 11:30] VITALS: BP 96/62
[2021-05-23 16:24] VITALS: BP 140/92
--- NOTE | 2021-05-23 17:06 | NUR ---
CM FOLLOWUP PT NOT MED CLEAR. PT OUT OF ISOLATION. PT ON 60L. CM TO FOLLOW FOR FUTURE DC NEEDS.
[2021-05-23 20:00] VITALS: BP 160/95
--- NOTE | 2021-05-23 20:30 | NUR ---
ID consult placed via internet.
--- NOTE | 2021-05-23 21:18 | NUR ---
The patient is alert. SR/ST on the monitor. Call light within reach. Denies SOB or CP.
--- NOTE | 2021-05-23 21:40 | NUR ---
Tele med called back the consult for ID has to be placed at 9am eastern time. This nurse will resubmit in the morning.
[2021-05-24] VITALS: BP 125/60
[2021-05-24 02:35] LABS: ABSOLUTE BASOPHILS 0.1 thou/uL (0.0-0.2); ABSOLUTE EOSINOPHILS 0.1 thou/uL (0.0-0.7); ABSOLUTE LYMPHOCYTES 0.4 thou/uL (0.8-5.3); ABSOLUTE MONOCYTES 0.9 thou/uL (0.0-1.2); ABSOLUTE NEUTROPHILS 20.1 thou/uL (1.6-8.1); BASOPHILS 0.4 %; EOSINOPHILS 0.5 %; HEMATOCRIT 35.6 % (42.0-52.0); HEMOGLOBIN 11.8 gm/dL (14.0-18.0); MCH 30.3 pg (26.0-34.0); MCHC 33.2 g/dL (28.0-37.0); MCV 91.2 fL (80.0-100.0); MPV 9.3 fl. (7.2-11.1); NUCLEATED RBCS 0 /100WBC; PLATELET COUNT* 243 thou/uL (150-400); POLYS 93.1 %; RBC 3.91 mil/uL (4.50-6.00); RDW-CV 13.6 % (10.5-14.5); WBC 21.6 thou/uL (4.0-11.0)
[2021-05-24 02:38] LABS: CALCIUM 8.3 mg/dL (8.5-10.1); CREATININE 0.7 mg/dL (0.6-1.3); MAGNESIUM 2.5 mg/dL (1.8-2.4); POTASSIUM 5.9 mmol/L (3.5-5.1)
[2021-05-24 04:00] VITALS: BP 135/70
[2021-05-24 08:00] VITALS: BP 156/88
[2021-05-24 12:03] VITALS: BP 151/81
[2021-05-24 16:20] VITALS: BP 136/86
--- NOTE | 2021-05-24 17:19 | NUR ---
CM FOLLOWUP PT NOT MED CLEAR AND ON BIPAP. CM TO FOLLOW FOR FUTURE DC NEEDS.
[2021-05-24 20:00] VITALS: BP 98/66
--- NOTE | 2021-05-24 22:02 | NUR ---
the patient is alert. able to make needs known. st on the monitor. lopez patent draning solo urine. prn medication given for low blood presure. PICC line intact. IV fluids infusing. tolerating the bipap at this time.
[2021-05-25 00:23] VITALS: BP 170/92
[2021-05-25 04:00] VITALS: BP 140/72
[2021-05-25 05:15] LABS: HEMATOCRIT 38.8 % (42.0-52.0); HEMOGLOBIN 12.6 gm/dL (14.0-18.0); MCH 29.9 pg (26.0-34.0); MCHC 32.5 g/dL (28.0-37.0); MPV 9.5 fl. (7.2-11.1); NUCLEATED RBCS 0 /100WBC; PLATELET COUNT* 230 thou/uL (150-400); RBC 4.22 mil/uL (4.50-6.00); RDW-CV 13.8 % (10.5-14.5); WBC 22.8 thou/uL (4.0-11.0)
[2021-05-25 05:33] LABS: ALBUMIN 2.7 g/dL (3.4-5.0); CALCIUM 8.5 mg/dL (8.5-10.1); CREATININE 1.2 mg/dL (0.6-1.3); MAGNESIUM 2.9 mg/dL (1.8-2.4); TOTAL BILIRUBIN 0.9 mg/dL (<0.1-1.0)
[2021-05-25 05:34] LABS: APTT 24.5 Seconds (25.0-31.3); POTASSIUM 5.5 mmol/L (3.5-5.1); PROTIME 10.7 Seconds (9.20-11.50)
[2021-05-25 06:33] LABS: ABSOLUTE LYMPHOCYTES 0.7 thou/uL (0.8-5.3); ABSOLUTE MONOCYTES 0.9 thou/uL (0.0-1.2); ABSOLUTE NEUTROPHILS 21.2 thou/uL (1.6-8.1); METAMYELOCYTES 3 %; MYELOCYTES 1 %; PLATELET ESTIMATE ADEQUATE
[2021-05-25 08:00] VITALS: BP 123/69
[2021-05-25 08:21] LABS: BE 5.2 mmol/L (-2 to +3); PCO2 37.3 mmHg (35.0-45.0); pH 7.501 (7.340-7.450)
[2021-05-25 08:30] LABS: PO2 57.8 mmHg (75.0-100.0)
[2021-05-25 12:39] VITALS: BP 143/78
--- NOTE | 2021-05-25 15:22 | NUR ---
CM FOLLOWUP PT NOT MED CLEAR AND ON BIPAP AND HEATED HIFLOW. CM TO FOLLOW FOR FUTURE DC NEEDS. PRIOR DC PLAN WAS TO DC HOME WITH SPOUSE WHEN MED CLEAR.
[2021-05-25 16:32] VITALS: BP 120/61
[2021-05-25 20:00] VITALS: BP 135/79
[2021-05-26] VITALS (17 sets, daily range): BP systolic 87–147; BP diastolic 55–89
--- NOTE | 2021-05-26 05:14 | NUR ---
ASSUMED CARE OF PT AFTER REPORT AT 1930. PT A&OX4. ANXIOUS. VSS. PHYSICAL ASSESSMWNT COMPLETED AND CHARTED. PT ON CONTINUOUS BIPAP 100%. PT WITH NGUYEN TO DEPENDENT DRAIN. PICC LINE STILL BLEEDING-REINFORCED DRESSING-DR ACUÑA MADE AWARE WITH ORDER TO HOLD LAST NIGHT LOVENOX. STARTED ON PRECEDEX DRIP ORDERED-TITRATED PER PROTOCOL. UPDATED RAYMA () REGARDING PT STATUS. FALL PRECAUTIONS IN PLACE. CALL LIGHT WITHIN REACH.
--- NOTE | 2021-05-26 09:00 | NUR ---
SPOKE WITH PATIENT ABOUT POSSIBLY NEEDING INTUBATION. PATIENT WANTS TO BE A FULL CODE. UPDATED DGTR ON PATIENT POTENTIALLY NEEDING INTUBATION. FAMILY CONCURS PATIENTS WANTS TO BE A FULL CODE
[2021-05-26 12:09] LABS: ABSOLUTE BASOPHILS 0.1 thou/uL (0.0-0.2); ABSOLUTE LYMPHOCYTES 0.6 thou/uL (0.8-5.3); ABSOLUTE MONOCYTES 0.5 thou/uL (0.0-1.2); ABSOLUTE NEUTROPHILS 13.5 thou/uL (1.6-8.1); BASOPHILS 0.4 %; HEMATOCRIT 33.2 % (42.0-52.0); LYMPHOCYTES 3.8 %; MCH 30.7 pg (26.0-34.0); MCHC 33.1 g/dL (28.0-37.0); MCV 92.7 fL (80.0-100.0); MONOCYTES 3.7 %; MPV 9.8 fl. (7.2-11.1); NUCLEATED RBCS 0 /100WBC; PLATELET COUNT* 164 thou/uL (150-400); POLYS 92.1 %; RBC 3.58 mil/uL (4.50-6.00); RDW-CV 13.5 % (10.5-14.5); WBC 14.7 thou/uL (4.0-11.0)
[2021-05-26 12:19] LABS: ALBUMIN 2.4 g/dL (3.4-5.0); CALCIUM 8.5 mg/dL (8.5-10.1); POTASSIUM 4.6 mmol/L (3.5-5.1); TOTAL BILIRUBIN 0.7 mg/dL (<0.1-1.0); TOTAL PROTEIN 5.3 g/dL (6.4-8.2)
--- NOTE | 2021-05-26 19:00 | NUR ---
Pt remains on Precedex gtt at 0.4 mcg, and BIPAP dependent. Did not attempt to have patient eat, drink, take PO meds as pt had been desaturating rapidly when taken off BIPAP. Lovenox held this am due to reports of bleeding at PICC site. Various family members including , dtr, and son(?) visited pt today (one at a time) as there is anticipation that he will get intubated soon. O2 sats low to mid-80s this am, but improved following adjustments made by RT to BIPAP settings. O2 sats low to mid-90s since. RR 18-25 for much of shift. Pt appears to be at apparent ease and in no distress. Will continue to monitor. Per family request, including Maegan (), Lorin (dtr) is DPOA for patient and central contact for patient updates.
[2021-05-27] VITALS (18 sets, daily range): BP systolic 115–196; BP diastolic 53–109
--- NOTE | 2021-05-27 03:39 | NUR ---
ASSUMED CARE OF PT AFTER REPORT AT 1930. PT A&OX4. VSS. PHYSICAL ASSESSMENT COMPLETED AND CHARTED. PT BIPAP DEPENDENT. ON PRECEDEX DRIP-RASS OF 0. PT WITH NGUYEN TO DEPENDENT DRAIN. PT DENIES PAIN. FALL PRECAUTIONS IN PLACE. CALL LIGHT WITHIN REACH.
[2021-05-27 10:10] LABS: PCO2 35.5 mmHg (35.0-45.0); pH 7.486 (7.340-7.450)
[2021-05-27 10:15] LABS: PO2 59.4 mmHg (75.0-100.0)
[2021-05-28] VITALS (27 sets, daily range): BP systolic 63–134; BP diastolic 43–86
[2021-05-28 03:55] LABS: HEMOGLOBIN 11.4 gm/dL (14.0-18.0); NUCLEATED RBCS 0 /100WBC
[2021-05-28 04:04] LABS: HEMATOCRIT 33.9 % (42.0-52.0); MCH 30.9 pg (26.0-34.0); MCHC 33.5 g/dL (28.0-37.0); MCV 92.1 fL (80.0-100.0); MPV 9.4 fl. (7.2-11.1); PLATELET COUNT* 139 thou/uL (150-400); RBC 3.68 mil/uL (4.50-6.00); RDW-CV 14.2 % (10.5-14.5); WBC 17.8 thou/uL (4.0-11.0)
[2021-05-28 04:40] LABS: PHOSPHORUS* 4.3 mg/dL (2.5-4.9)
[2021-05-28 04:56] LABS: ALBUMIN 2.5 g/dL (3.4-5.0); CALCIUM 8.2 mg/dL (8.5-10.1); CREATININE 0.9 mg/dL (0.6-1.3); MAGNESIUM 3.4 mg/dL (1.8-2.4); POTASSIUM 4.9 mmol/L (3.5-5.1); TOTAL BILIRUBIN 1.2 mg/dL (<0.1-1.0); TOTAL PROTEIN 5.3 g/dL (6.4-8.2)
--- NOTE | 2021-05-28 06:21 | NUR ---
ASSUMED CARE OF PT AFTER REPORT AT 1930. PT A&OX4. VSS. PHYSICAL ASSESSMENT COMPLETED AND CHARTED. PT ON CONTINUOUS BIPAP 100%. PT TRACING SR ON TELE. PT ON PRECEDEX DRIP-TITRATED PER PROTOCOL. FALL PRECAUTIONS IN PLACE. CALL LIGHT WITHIN REACH.
[2021-05-28 06:46] LABS: ABSOLUTE LYMPHOCYTES 0.2 thou/uL (0.8-5.3); ABSOLUTE MONOCYTES 0.2 thou/uL (0.0-1.2); ABSOLUTE NEUTROPHILS 17.4 thou/uL (1.6-8.1)
[2021-05-28 06:47] LABS: PLATELET ESTIMATE DECREASED
[2021-05-28 06:48] LABS: LARGE PLATELETS OCCASIONAL
[2021-05-28 09:47] LABS: ABSOLUTE BASOPHILS 0.1 thou/uL (0.0-0.2); ABSOLUTE MONOCYTES 0.4 thou/uL (0.0-1.2); BASOPHILS 0.4 %; HEMATOCRIT 34.7 % (42.0-52.0); HEMOGLOBIN 11.4 gm/dL (14.0-18.0); LYMPHOCYTES 4.3 %; MCH 30.5 pg (26.0-34.0); MCHC 32.8 g/dL (28.0-37.0); MCV 92.8 fL (80.0-100.0); MONOCYTES 1.8 %; MPV 9.1 fl. (7.2-11.1); NUCLEATED RBCS 0 /100WBC; PLATELET COUNT* 165 thou/uL (150-400); POLYS 93.5 %; RBC 3.74 mil/uL (4.50-6.00); RDW-CV 14.1 % (10.5-14.5); WBC 22.5 thou/uL (4.0-11.0)
--- NOTE | 2021-05-28 10:00 | NUR ---
PT ARRIVED TO UNIT AT APPROXIMATELY 0900, REPORT TAKEN FROM VANESSA PARKER. PT WAS IN DISTRESS AND INTUBATED. CODE CALLED, SEE CODE SHEET. PICC LINE AND CHEST TUBE PLACED, FAMILY NOTIFIED. REPORT HANDED OFF TO AWILDA PARKER.
--- NOTE | 2021-05-28 10:35 | NUR ---
ASSUMED PT CARE AT 0730, PT AOX4, LABORED BREATHING, ON BIPAP AT 100% AND SATTING AROUND 90%, PT ON PRECEDEX DRIP AT 1.0. PT NOTED TO HAVE STAGE 1 PRESSURE ULCER ON COCCYX SO WE TURNED PT TO LT SIDE AND PT DESATTED INTO 70'S-80'S, NOT COMING BACK UP, DR ACUÑA CALLED AND PT MOVED TO ICU BED 3 AT APPROX 0915 AND INTUBATED, REPORT GIVEN TO LATRINE CLEANER.
[2021-05-28 10:38] LABS: ALBUMIN 2.3 g/dL (3.4-5.0); CALCIUM 7.8 mg/dL (8.5-10.1); CREATININE 1.1 mg/dL (0.6-1.3); POTASSIUM 4.7 mmol/L (3.5-5.1); TOTAL BILIRUBIN 1.3 mg/dL (<0.1-1.0); TOTAL PROTEIN 5.2 g/dL (6.4-8.2)
[2021-05-28 10:50] LABS: ESR (SEDRATE) 26 mm/hr (0-20)
[2021-05-28 11:49] LABS: BE 4.3 mmol/L (-2 to +3); PO2 70.4 mmHg (75.0-100.0); pH 7.347 (7.340-7.450)
[2021-05-28 11:51] LABS: PCO2 58.6 mmHg (35.0-45.0)
--- NOTE | 2021-05-28 13:27 | NUR ---
assumed care of patient. handoff from ELENA baldwin
--- NOTE | 2021-05-28 13:48 | NUR ---
CM FOLLOWUP PARTIES LISTED ON DPOA: PT - CE HENRIQUEZ - [phone] PT DAUGHTER - BENITO HENRIQUEZ - [phone] - PLEASE CALL THIS NUMBER PT TRANSFERRED TO ICU. PT'S AND DAUGHTER REQUESTING TO SPEAK WITH CM REGARDING DPOA. DPOA PREVIOUSLY COMPLETED WITH PT AND PT LISTED AND DAUGHTER ANA AGENTS. PT'S DAUGHTERS WANTED TO BE PT'S DPOA AGENTS. CM ADVISED THAT THE CHOICE FOR AGENTS HAS TO COME FROM THE PATIENT DIRECTLY AND THAT PT CHOSE AND DAUGHTER ANA. PT AND DAUGHTERS REQUESTED THAT ANA BE CONTACTED INSTEAD OF PT PT HEALTH PROGNOSIS IS NEGATIVELY IMPACTING PT 'S MENTAL HEALTH. PT'S AND DAUGHTERS ALL SEEM TO BE IN AGREEMENT WITH PT'S CARE/NEEDS, BUT WANT [facility] TO CONTACT ANA AND NOT PT'S . CM RELAYED INFORMATION TO ICU. CM TO FOLLOW.
--- NOTE | 2021-05-28 13:49 | NUR ---
ICU Rounds: Recieved update from physician during rounds that patient was transferred to ICU after developing a pneumothorax requiring intubation (FiO2 100% and peep 15). R chest tube was just placed to water seal. CM to continue to follow.
[2021-05-28 15:32] LABS: BE 1.3 mmol/L (-2 to +3); pH 7.345 (7.340-7.450)
[2021-05-28 15:37] LABS: PCO2 52.2 mmHg (35.0-45.0); PO2 44.7 mmHg (75.0-100.0)
[2021-05-28 17:35] LABS: CALCIUM 7.6 mg/dL (8.5-10.1); CREATININE 1.1 mg/dL (0.6-1.3); MAGNESIUM 3.1 mg/dL (1.8-2.4); POTASSIUM 4.7 mmol/L (3.5-5.1)
--- NOTE | 2021-05-28 19:28 | NUR ---
PT WIOTH PNEUMOTHORAX-CHEST TUBE X2 INSERTED BY DR. CARABALLO. 02SAT IMPROVED AFTER 2ND CHEST TUBE. LEVO INFUSING AND TITRATED TO MAINTAIN MAP 65.
--- NOTE | 2021-05-28 19:40 | NUR ---
PT BL SOFT RESTRAINTS REMOVED AT 1919. PT DAUGHTER ANA AT BEDSIDE.
--- NOTE | 2021-05-28 19:48 | NUR ---
PT DAUGHTER REPORTED TO THIS RN THAT "SHE WOULD LIKE TO KEEP HER DAD A FULL CODE FOR ONE ROUND. BUT THEN NO MORE. LET HIM GO IN [place]." THIS WAS REPORTED TO [employer]IL[employer] DIRECTOR.
[2021-05-28 22:05] LABS: ABSOLUTE BASOPHILS 0.1 thou/uL (0.0-0.2); ABSOLUTE LYMPHOCYTES 0.4 thou/uL (0.8-5.3); ABSOLUTE MONOCYTES 0.6 thou/uL (0.0-1.2); ABSOLUTE NEUTROPHILS 24.1 thou/uL (1.6-8.1); BASOPHILS 0.3 %; HEMATOCRIT 31.5 % (42.0-52.0); HEMOGLOBIN 10.1 gm/dL (14.0-18.0); LYMPHOCYTES 1.7 %; MCH 30.3 pg (26.0-34.0); MCV 94.6 fL (80.0-100.0); MONOCYTES 2.2 %; NUCLEATED RBCS 0 /100WBC; PLATELET COUNT* 164 thou/uL (150-400); POLYS 95.8 %; RBC 3.33 mil/uL (4.50-6.00); RDW-CV 14.3 % (10.5-14.5); WBC 25.2 thou/uL (4.0-11.0)
[2021-05-28 22:16] LABS: APTT 25.6 Seconds (25.0-31.3); INR 1.3; PROTIME 12.9 Seconds (9.20-11.50)
[2021-05-29] VITALS (58 sets, daily range): BP systolic 52–149; BP diastolic 29–89
[2021-05-29 05:18] LABS: ABSOLUTE BASOPHILS 0.4 thou/uL (0.0-0.2); ABSOLUTE LYMPHOCYTES 0.5 thou/uL (0.8-5.3); ABSOLUTE MONOCYTES 0.7 thou/uL (0.0-1.2); ABSOLUTE NEUTROPHILS 22.7 thou/uL (1.6-8.1); BASOPHILS 1.5 %; HEMATOCRIT 29.9 % (42.0-52.0); HEMOGLOBIN 9.7 gm/dL (14.0-18.0); LYMPHOCYTES 1.9 %; MCH 30.3 pg (26.0-34.0); MCHC 32.2 g/dL (28.0-37.0); MONOCYTES 2.9 %; MPV 9.3 fl. (7.2-11.1); NUCLEATED RBCS 2 /100WBC; PLATELET COUNT* 143 thou/uL (150-400); POLYS 93.7 %; RBC 3.19 mil/uL (4.50-6.00); RDW-CV 14.5 % (10.5-14.5); WBC 24.3 thou/uL (4.0-11.0)
[2021-05-29 05:39] LABS: APTT 25.9 Seconds (25.0-31.3); INR 1.5; PROTIME 15.6 Seconds (9.20-11.50)
[2021-05-29 06:06] LABS: ALBUMIN 1.9 g/dL (3.4-5.0); CREATININE 1.3 mg/dL (0.6-1.3); MAGNESIUM 3.1 mg/dL (1.8-2.4); POTASSIUM 5.5 mmol/L (3.5-5.1); TOTAL BILIRUBIN 2.5 mg/dL (<0.1-1.0); TOTAL PROTEIN 4.6 g/dL (6.4-8.2)
[2021-05-29 06:43] LABS: PHOSPHORUS* 5.4 mg/dL (2.5-4.9)
[2021-05-29 08:09] LABS: BE -2.9 mmol/L (-2 to +3); PO2 60.2 mmHg (75.0-100.0)
[2021-05-29 08:20] LABS: PCO2 51.6 mmHg (35.0-45.0); pH 7.286 (7.340-7.450)
--- NOTE | 2021-05-29 10:00 | NUR ---
ICU Rounds: Patient remains on vent (FiO2 90% and Peep 14). Continued gtts and sedation. [address] right [address] tubes in place. Left vm with Maegan to provide check in call. CM to continue to follow
[2021-05-29 14:39] LABS: BE -4.3 mmol/L (-2 to +3); PCO2 46.8 mmHg (35.0-45.0); PO2 75.2 mmHg (75.0-100.0)
[2021-05-29 14:44] LABS: pH 7.294 (7.340-7.450)
--- NOTE | 2021-05-29 14:48 | EKG ---
[place] [address] ELECTROCARDIOGRAM REPORT Name: YESSY HENRIQUEZ Room: [address] ADM IN M.R.#: [id number] Admission: 05/08/21 Attend Phys: Sulaiman Nelson Discharge: Date of : 53 Date of Service: 05/29/21 1439 Report #: [id number] THIS REPORT FOR: //name// [facility] Test Date: 2021-05-29 Test Time: 14:39:05 Pat Name: YESSY DAVILANATHANRANJIT Department: Room: [address] Gender: M Validation Scientist: G : 1955 Requested By: Herman Jordan Order Number: [id number] MD: Yessy Wylie Measurements Intervals [place] Rate: 116 P: 87 MS: 107 QRS: 82 QRSD: 85 T: 64 QT: 308 QTc: 428 Interpretive Statements Sinus tachycardia Right atrial enlargement Borderline right axis deviation Baseline wander in lead(s) V2 Compared to ECG 05/08/2021 13:09:13 rate has slowed Electronically Signed On 05-29-2021 14:47:52 ENVIRONMENTAL TECHNOLOGY PROFESSOR by Yessy Wylie [email or web address] <ELECTRONICALLY SIGNED> By: Yessy Wylie MD, [facility] 05/29/21 1447 1439 1439 Yessy Wylie MD, [facility] /EPI
[2021-05-29 16:32] LABS: CALCIUM 6.6 mg/dL (8.5-10.1); CREATININE 1.6 mg/dL (0.6-1.3); MAGNESIUM 2.9 mg/dL (1.8-2.4); POTASSIUM 5.7 mmol/L (3.5-5.1)
--- NOTE | 2021-05-29 21:55 | NUR ---
Pt extubate to room air at 2152 per family wishes.
--- NOTE | 2021-05-30 02:11 | NUR ---
05/29/212044 PT IN SVT. HR 230'S. BP 60/30 ARTLINE. LEVOPHED, NEOSYNEPHRINE AND VASOPRESSIN ALL RUNNING AT MAX DOSE PER HOSPITAL POLICY. DR HOFFMANN AT BEDSIDE. SEE CODE SHEET FOR MEDS GIVEN. FAMILY CALLED 2104 FAMILY AT BEDSIDE. AND 2 DAUGHTERS ASK TO MAKE PT COMFORT CARE. THIS RN EXPLAINED THAT VASOPRESSORS CAN BE STOPPED BUT VERSED AND FENTANYL LEFT ON FOR PT COMFORT. FAMILY STATED THIS IS WHAT HE WOULD HAVE WANTED AND THEY ARE "READY TO LET HIM GO PEACEFULLY". [address] ACUÑA. VERBAL ORDER TO MAKE PT COMFORT CARE PER FAMILY WISHES. 2114 MEDICATIONS STOPPED. FAMILY AT BEDSIDE. PT EXTUBATED PER FAMILY REQUEST [id number]
--- NOTE | 2021-05-30 15:12 | EKG ---
[place] [address] ELECTROCARDIOGRAM REPORT Name: LUIS ANTONIO HENRIQUEZ Room: [address] DIS IN M.R.#: [id number] Admission: 05/08/21 Attend Phys: Sulaiman Nelson Discharge: 05/29/21 Date of : 53 Date of Service: 05/29/21 1439 Report #: [id number] THIS REPORT FOR: //name// [facility] Test Date: 2021-05-29 Test Time: 14:39:05 Pat Name: LUIS ANTONIO HENRIQUEZ Department: Room: [address] Gender: M Voice Pathologist: VMG : 1955 Requested By: Sulaiman Nelson Order Number: [id number] Reading MD: Luis Antonio Wylie Measurements Intervals [place] Rate: 116 P: 87 ME: 107 QRS: 82 QRSD: 85 T: 64 QT: 308 QTc: 428 Interpretive Statements Sinus tachycardia Right atrial enlargement Borderline right axis deviation Baseline wander in lead(s) V2 Compared to ECG 05/08/2021 13:09:13 Atrial abnormality now present Electronically Signed On 05-30-2021 15:12:53 CLASSER by Luis Antonio Wylie [email or web address] <ELECTRONICALLY SIGNED> By: Luis Antonio Wylie MD, FAC 05/30/21 1512 1439 1439 Luis Antonio Wylie MD, FAC /EPI
== END 2021-05-29 22:05 | DRG 208 ==
LOC: M.ERS 12:30 → M.TBA-ER 14:22 → M.ORTHSURG 05-09 21:20 → M.ICU 05-28 09:04
PROVIDERS: Emergency Medicine Emergency Medical Services; Internal Medicine; Internal Medicine Critical Care Medicine; ADMIT Internal Medicine; ATTEND Internal Medicine
PROC: XW033E5 Introduction of Remdesivir Anti-infective into Peripheral Vein, Percutaneous Approach, New Technology Group 5 (ICD-10-PCS; 2021-05-13)
PROC: 05HB33Z Insertion of Infusion Device into Right Basilic Vein, Percutaneous Approach (ICD-10-PCS; 2021-05-23)
PROC: 0BH17EZ Insertion of Endotracheal Airway into Trachea, Via Natural or Artificial Opening (ICD-10-PCS; 2021-05-25)
PROC: 5A09457 Assistance with Respiratory Ventilation, 24-96 Consecutive Hours, Continuous Positive Airway Pressure (ICD-10-PCS; 2021-05-25)
PROC: 5A0935A Assistance with Respiratory Ventilation, Less than 24 Consecutive Hours, High Flow/Velocity Cannula (ICD-10-PCS; 2021-05-25)
PROC: 5A1945Z Respiratory Ventilation, 24-96 Consecutive Hours (ICD-10-PCS; principal; 2021-05-28)
PROC: 5A0935A Assistance with Respiratory Ventilation, Less than 24 Consecutive Hours, High Flow/Velocity Cannula (ICD-10-PCS; 2021-05-28)
PROC: 0W9930Z Drainage of Right Pleural Cavity with Drainage Device, Percutaneous Approach (ICD-10-PCS; 2021-05-28)
PROC: 0W9930Z Drainage of Right Pleural Cavity with Drainage Device, Percutaneous Approach (ICD-10-PCS; 2021-05-28)
PROC: 03HY32Z Insertion of Monitoring Device into Upper Artery, Percutaneous Approach (ICD-10-PCS; 2021-05-28)
DX: U07.1 COVID-19 (principal); J96.01 Acute respiratory failure with hypoxia; J12.82 Pneumonia due to coronavirus disease 2019; J15.6 Pneumonia due to other Gram-negative bacteria; J15.9 Unspecified bacterial pneumonia; N17.9 Acute kidney failure, unspecified; J44.0 Chronic obstructive pulmonary disease with (acute) lower respiratory infection; J44.1 Chronic obstructive pulmonary disease with (acute) exacerbation; J93.9 Pneumothorax, unspecified; B37.0 Candidal stomatitis; B17.9 Acute viral hepatitis, unspecified; N18.9 Chronic kidney disease, unspecified; L89.159 Pressure ulcer of sacral region, unspecified stage; E87.70 Fluid overload, unspecified